=== PATIENT | male | born 2000 | race Two or more races ===

== ENCOUNTER 2025-01-20 09:23 | Outpatient (REF) | payer BC, SELFPAY ==
[2025-01-20 10:55] LABS: MANUAL DIFF FLAG NO
[2025-01-20 11:01] LABS: Hematocrit 43.3 % (42.0-52.0); Hemoglobin 15.4 g/dl (14.0-18.0); Imm Gran Abs Auto 0.06 X10*3/uL (0.00-0.03); Imm Gran Pct Auto 0.9 % (0.0-0.4); Lymphocytes Absolute Auto 2.5 X10*3/uL (1.2-4.9); Mean Corpuscular HGB Conc 35.6 g/dl (31.0-36.0); Mean Corpuscular Hemoglobin 30.0 pg (27.0-33.0); Mean Corpuscular Volume 84.2 fL (80.0-98.0); NRBC Abs Auto 0.000 X10*3/uL (0.0-0.012); NRBC Pct Auto 0.0 /100WBC (0.0-0.2); Platelet Count 202 X10*3/uL (160-400); Red Blood Count 5.14 X10*6/uL (4.60-5.80); White Blood Count 6.5 X10*3/uL (4.8-10.8)
[2025-01-20 11:35] LABS: Alanine Aminotransferase 28 U/L (0-40); Albumin Level 4.9 g/dL (3.5-5.0); Alkaline Phosphatase 70 U/L (39-117); Anion Gap 12 (12-20); Aspartate Amino Transferase 19 U/L (5-37); Blood Urea Nitrogen 17 mg/dL (9-16); Calcium 9.3 mg/dL (8.4-10.2); Carbon Dioxide 25 mmol/L (22-29); Chloride 105 mmol/L (96-108); Estimated Glomerular Filt Rate > 60; Potassium 3.8 mmol/L (3.3-5.1); Sodium 138 mmol/L (135-145); Total Protein 7.5 g/dL (6.5-8.0)
[2025-01-20 11:36] LABS: Alanine Aminotransferase 28 U/L (0-40); Albumin Level 4.8 g/dL (3.5-5.0); Alkaline Phosphatase 70 U/L (39-117); Anion Gap 12 (12-20); Aspartate Amino Transferase 31 U/L (5-37); Blood Urea Nitrogen 17 mg/dL (9-16); Calcium 9.3 mg/dL (8.4-10.2); Carbon Dioxide 24 mmol/L (22-29); Chloride 106 mmol/L (96-108); Cholesterol 189 mg/dL (<200); Estimated Glomerular Filt Rate > 60; HDL Cholesterol 58 mg/dL (>40); Iron 73 mcg/dL (45-160); Percent Iron Saturation 26 % (15-50); Potassium 3.8 mmol/L (3.3-5.1); Sodium 138 mmol/L (135-145); Total Iron Binding Capacity 283 mcg/dL (228-428); Total Protein 7.4 g/dL (6.5-8.0); Triglycerides 119 mg/dL (<150); Unsaturated Iron Binding 210 ug/dL
[2025-01-20 11:48] LABS: Appearance Urine Clear; Glucose Urine UA Negative (Negative); PH 6.5 (5.0-9.0); Specific Gravity - Urine <= 1.005 (1.005-1.025)
[2025-01-20 11:55] LABS: Ferritin 137 ng/mL (20-250); Thyroid Stimulating Hormone 1.48 uIU/mL (0.32-4.0)
[2025-01-27 00:24] LABS: Lactoferrin, Fecal, Quant. <6.25 mcg/mL (<7.25)
== END 2025-01-20 09:24 | disposition home or self-care (01) ==
LOC: HO.LAB 09:23
PROVIDERS: Absent Provider Hospitalist; PCP Hospitalist; Visit Provider Internal Medicine Gastroenterology
DX: Z00.00 Encounter for general adult medical examination without abnormal findings (principal); R10.9 Unspecified abdominal pain; R30.0 Dysuria; K51.50 Left sided colitis without complications; R63.4 Abnormal weight loss
CPT/HCPCS: 36415; 80053; 80061; 81003; 82728; 83013; 83540; 83631; 84443; 85025; 86140; 99211

== ENCOUNTER 2025-01-20 09:23 | Outpatient (AMB) | payer BC, SELFPAY ==
--- NOTE | 2025-01-20 09:33 | AM.OFFVISNUR ---
Intake Visit Reasons: H Pylori Nursing Note Patient presents for collection of H Pylori breath test. Patient has been fasting for 1 hour (nothing to eat, drink, no chewing gum or smoking) has not taken any antacid medication for at least 2 weeks and has no allergies to artificial sweeteners.?? Assessment & Plan Assessment & Plan (1) Abdominal pain: Code(s): R10.9 - Unspecified abdominal pain Category: Medical Plan Patient presents for collection of H Pylori breath test. Patient has been fasting for 1 hour (nothing to eat, drink, no chewing gum or smoking) has not taken any antacid medication for at least 2 weeks and has no allergies to artificial sweeteners.???This test checks for an overgrowth of bacteria in your stomach. We all have bacteria but some may have more than others. It is treatable. if the test comes back negative there is nothing else to do. If the test result is positive we will treat you with 2 antibiotics and a medication to decrease the acid in your stomach (PPI) for 2 weeks. Two weeks after you have completed the treatment we will retest you to make sure the overgrowth has resolved. Orders: Orders H Pylori Breath Test Today Patient Instructions: Process for specimen collection and reason for testing was explained to the patient. Specimen collection. Patient instructed to take a deep breath and then exhale into the blue bag, filling it up as much as possible. Patient instructed to drink a mixture of water and the artificial sweetener with a straw. A 15 minute wait period was observed. Patient instructed to take a deep breath and then exhale into the pink bag, filling it up as much as possible.?? Coding Level of Care Code Established Pt Est Pt Level 1 (68120) Patient Type Established Medical Decision Making Straight Forward Diagnoses Abdominal pain R10.9
--- OUTSIDE RECORDS SUMMARY | 2025-01-20 09:50 | XMS_ITS | Patient Health Record ---
Author Organization [facility] Address [address] [place] [address] Care Team Providers Care Radiation Oncology Manager Name Role Phone SIDRA REAL Primary Care Provider Claude Oreilly Unavailable [phone] Allergies No Known Allergies Reason For Referral Reason abdominal pain ple ase evaluate and treat Diagnosis 1 Abdominal pain (R10. 9) Referral Organization [facility] Referring Provider First Name Claude Referring Provider Last Name Denilson Referred Provider Specialty Gastroentero logy General Notes Referral was faxed t o [facility]. Please contact patient for scheduling., Lydia Cope 01/05/2025 04:55:41 PM > Referral Priority Routine Reason abdominal pain ple ase evaluate and treat Diagnosis 1 Abdominal pain (R10. 9) Referral Organization [facility] Referring Provider First Name SIDRA Referring Provider Last Name FARHAN Referring Provider Speciality Internal M edicine Referred Provider Specialty Gastroentero logy General Notes Referral was faxed t o [facility]. Please contact patient for scheduling, Lydia Cope 01/06/2025 04:52:22 PM > Referral Priority Routine Medications Medication SIG (Take, Route, Fr equency, Duration) Notes Start Date End Date Status Hydrocortisone 2.5 % 1 application Exter tk Twice a day; Duration: 21 days 06/22/2024 Active Problems Problem Type SNOMED Code ICD Code Onset Dates Problem Status W/U Status Risk Notes Problem Generalized anxiety disorder (90159590) Generalized anxiety disorder (F41.1) Active confirmed Problem Attention-defici t hyperactivity disorder, other type (F90.8) Active confirmed Problem Paresthesia (finding) (32370741) Paresthesia of skin (R20.2) Active confirmed Vital Signs Heart Rate 75 /min 11/25/2024 Temperature 97.2 degrees Fahrenheit 11/25/2024 Oximetry 98 % 11/25/2024 Blood pressure diastolic 74 mm Hg 11/25/2024 Height 5'7'' in 11/25/2024 Blood pressure systolic 110 mm Hg 11/25/2024 Weight 124.2 lbs 11/25/2024 BMI 19.45 kg/m2 11/25/2024 Encounters Encounter Location Date Provider Diagnosis [address] [place] [address] 05/21/2024 SIDRA REAL Annual physical exam Z00.00 ; Abnormal weight loss R63.4 ; Generalized anxiety disorder F41.1 and Unspecified abdominal pain R10.[address] [place] [address] 06/22/2024 VALENTE GUL Pain in right wrist M25.531 and Dermatitis, unspecified L30.[address] [place] [address] 08/06/2024 VALENTERASTA REAL Generalized anxiety disorder F41.1 and Paresthesia of skin R20.[address] [place] [address] 11/17/20[address] [place] [address] 11/25/2024 SIDRA REAL Attention-deficit hyperactivity disorder, other type F90.8 and Abdominal pain R10.[address] [place] [address] 06/28/[address] [place] [address] 07/12/[address] [place] [address] 11/25/[address] [place] [address] 12/13/2024 SIDRA REAL [facility] [address] [place] [address] 01/05/2025 Claude Oreilly [facility] [address] [place] [address] 01/06/2025 SIDRA REAL Assessments Encounter Date Diagnosis (ICD Code) Assessment Notes Treatment Notes Treatment Clinical Notes Section Notes 05/21/2024 Abnormal weight loss (ICD-10 - R63.4) Yousef age [age] years old gentleman with history of ADD is here to establish care. He complains of generalized anxiety disorder and abdominal pain/discomfort with no association with the food and unintentional weight loss. Plan is as follows Abdominal pain and weight loss. Differential diagnosis is gastritis, gallstones, generalized anxiety disorder. Dietary changes discussed and not interested in medications. We will do ultrasound of the abdomen to rule out gallstones. Meanwhile he should keep a diary of the triggers Generalized anxiety disorder. Lifestyle modification and given referral to Ms. Corona. He is not interested in pharmacotherapy. Screening blood work ordered. 05/21/2024 Annual physical exam (ICD-10 - Z00.00) Yousef age [age] years old gentleman with history of ADD is here to establish care. He complains of generalized anxiety disorder and abdominal pain/discomfort with no association with the food and unintentional weight loss. Plan is as follows Abdominal pain and weight loss. Differential diagnosis is gastritis, gallstones, generalized anxiety disorder. Dietary changes discussed and not interested in medications. We will do ultrasound of the abdomen to rule out gallstones. Meanwhile he should keep a diary of the triggers Generalized anxiety disorder. Lifestyle modification and given referral to Ms. Corona. He is not interested in pharmacotherapy. Screening blood work ordered. 06/22/2024 Dermatitis, unspecified (ICD-10 - L30.9) Yousef is a 24-year old gentleman with generalized anxiety disorder who is here today complaining of pain on his right wrist. Plan is as follows: Pain on right wrist. DDX tendinitis. He can use a hand brace and he can take Tylenol as needed. Ice the affected area. Ordered x-ray of the right wrist to rule out any fracture. Dermatitis. Start Hydrocortisone Cream BID General health concerns discussed with patient. Scribe services used to formulate this note under HIPAA compliance and under [place] law mandated for scribe services. Patient aware of service. Verbal consent and written consent taken from the patient. Patient understands and verbalizes understanding of the scribes services and all questions answered regarding scribes services. Patient agrees to use of scribes services. 06/22/2024 Pain in right wrist (ICD-10 - M25.531) Emelina is a 24-year old gentleman with generalized anxiety disorder who is here today complaining of pain on his right wrist. Plan is as follows: Pain on right wrist. DDX tendinitis. He can use a hand brace and he can take Tylenol as needed. Ice the affected area. Ordered x-ray of the right wrist to rule out any fracture. Dermatitis. Start Hydrocortisone Cream BID General health concerns discussed with patient. Scribe services used to formulate this note under HIPAA compliance and under [place] law mandated for scribe services. Patient aware of service. Verbal consent and written consent taken from the patient. Patient understands and verbalizes understanding of the scribes services and all questions answered regarding scribes services. Patient agrees to use of scribes services. 08/06/2024 Generalized anxiety disorder (ICD-10 - F41.1) Emelina is 24 years old with generalized anxiety disorder currently not on any medication is here for paresthesias of the right vazquez with no history of injury, trauma, unusual activity or strenuous activity. Plan is as follows Paresthesia right vazquez area. Exam is normal. He does not have any systemic or constitutional symptoms. At this point we will observe and if anything changes he will inform us. Screening blood work ordered 08/06/2024 Paresthesia of skin (ICD-10 - R20.2) Emelina is 24 years old with generalized anxiety disorder currently not on any medication is here for paresthesias of the right vazquez with no history of injury, trauma, unusual activity or strenuous activity. Plan is as follows Paresthesia right vazquez area. Exam is normal. He does not have any systemic or constitutional symptoms. At this point we will observe and if anything changes he will inform us. Screening blood work ordered 11/25/2024 Attention-deficit hyperactivity disorder, other type (ICD-10 - F90.8) Yousef is 24 years old gentleman with generalized anxiety disorder, ADHD in middle school and he was on Ritalin and Adderall is here today for follow-up. He also complained of intermittent abdominal pain and discomfort. Plan is as follows ADHD. We decided that we will try Strattera when he started going to school in February. Abdominal pain. It can be musculoskeletal, functional, IBS because of history of anxiety. We will do ultrasound for further evaluation. Advised to do screening blood work. 11/25/2024 Abdominal pain (ICD-10 - R10.9) Yousef is 24 years old gentleman with generalized anxiety disorder, ADHD in middle school and he was on Ritalin and Adderall is here today for follow-up. He also complained of intermittent abdominal pain and discomfort. Plan is as follows ADHD. We decided that we will try Strattera when he started going to school in February. Abdominal pain. It can be musculoskeletal, functional, IBS because of history of anxiety. We will do ultrasound for further evaluation. Advised to do screening blood work. 05/21/2024 Generalized anxiety disorder (ICD-10 - F41.1) Yousef age [age] years old gentleman with history of ADD is here to establish care. He complains of generalized anxiety disorder and abdominal pain/discomfort with no association with the food and unintentional weight loss. Plan is as follows Abdominal pain and weight loss. Differential diagnosis is gastritis, gallstones, generalized anxiety disorder. Dietary changes discussed and not interested in medications. We will do ultrasound of the abdomen to rule out gallstones. Meanwhile he should keep a diary of the triggers Generalized anxiety disorder. Lifestyle modification and given referral to Ms. Corona. He is not interested in pharmacotherapy. Screening blood work ordered. 05/21/2024 Unspecified abdominal pain (ICD-10 - R10.9) Yousef age [age] years old gentleman with history of ADD is here to establish care. He complains of generalized anxiety disorder and abdominal pain/discomfort with no association with the food and unintentional weight loss. Plan is as follows Abdominal pain and weight loss. Differential diagnosis is gastritis, gallstones, generalized anxiety disorder. Dietary changes discussed and not interested in medications. We will do ultrasound of the abdomen to rule out gallstones. Meanwhile he should keep a diary of the triggers Generalized anxiety disorder. Lifestyle modification and given referral to Ms. Corona. He is not interested in pharmacotherapy. Screening blood work ordered. Plan Of Treatment Pending Test Test Name Order Date Xray: Limited Wrist Right-2 Vws 06/22/20 Future Test Test Name Order Date US Abdomen 05/21/2024 Iron and [id number] 05/21/2024 TSH-[id number] 05/21/2024 Ferritin-[id number] 05/21/2024 CBC With Differential/Platelet-[id number] Lactose Tolerance Test-[id number] 05/21/2024 Chlamydia/GC Amplification-[id number] 2023 Lipid Panel-[id number] 05/21/2024 Comp. Metabolic Panel [id number] 2023 Next Appt Details Provider Name:SIDRA REAL , 02/24/2025 01:45:00 PM, [address] [place] [address], [phone], Provider Name:SIDRA REAL , 05/27/2025 03:00:00 PM, [address] [place] [address], [phone], Insurance Providers Payer Name Payer Address Payer Phone Subscriber Number Group Number Insured Name Patient Relationship to Insured Coverage Start Date Coverage End Date [facility] [address] [place] [address] [phone] [id number] DUSTIN, YOUSEF Self - patient is the insured
== END 2025-01-20 09:38 | disposition home or self-care (01) ==
LOC: HO.HGI 09:24
PROVIDERS: PCP Hospitalist; Visit Provider Internal Medicine Gastroenterology
DX: R10.9 Unspecified abdominal pain (principal)

== ENCOUNTER 2025-06-13 13:36 | Outpatient (AMB) | payer OTHER, SELFPAY ==
--- NOTE | 2025-06-13 13:51 | MHC.OFFVIS ---
Vital Signs 06/13/25 13:53 Height 5 ft 9.5 in Weight 130 lb 1.164 oz BMI 18.9 BP 120/61 Blood Pressure Location Lt brachial Position Sitting Pulse 73 Intake Visit Reasons: Abdominal pain - son of Dr. Hightower Intake Note: Yousef presents in the office as a new patient . off and on abdominal pains - can be with eating but it is also without. He notices more at home. On and off constipation and diarrhea but he states that it is less constipation. Electric Stop Installer Required: No Allergies No Known Allergies Allergy (Verified 06/13/25 13:53) HPI HPI Abdominal pain - son of Dr. Hightower: Details: HPI 25 yr old m here for assessment for abdominal pain He has left sided abdominal pain, for 1 yr crampy in nature sleep helps food can make it worse--can happen after 30 mins no n/v he has diarrhea every so often he thinks he is lactose intolerant no blood or melena in stools he does get cold sores occasional joint pains he gets pain in hands, worse in cold he felt better in [place] ROS: Constitutional : No Weight loss, No Fever, No Chills ENT/Mouth : No sore throat, No Rhinorrhea Eyes: No Swelling, No Redness Cardiovascular : No Chest Pain, No SOB, No Edema Respiratory : No Cough, No Sputum, No Wheezing Gastrointestinal : see HPI Genitourinary : NO Dysuria, No Urinary Frequency, No Hematuria, No Urgency Musculoskeletal : + joint pain, No Myalgias, No Joint Swelling Skin : No Skin Lesions, No rash Neuro : No Weakness, No Numbness, No Dizziness, No Headache Psych : + Anxiety/Panic, No Depression Heme/Lymph: No Bruising, No Lymphadenopathy Endocrine : No Polyuria, No Polydipsia All other systems reviewed and are negative. Medical History none Surgical History none Family History liver dz in grandfather Social History he denies smoking, THC, no alcohol EXAM: GENERAL: The patient is well developed and nontoxic. thin VITAL SIGNS:see workflow HEENT: Nonicteric sclerae, PERRLA, EOMI. Oropharynx clear. Moist mucous membranes. Conjunctivae appear well perfused. No thyroid mass. CHEST: Chest wall is nontender. HEART: Regular rate and rhythm without murmurs. LUNGS: Clear to auscultation bilaterally. ABDOMEN: Soft, positive bowel sounds, nontender, no organomegaly.no flank tenderness SKIN: No rash, no excessive bruising, petechiae, or purpura. NEUROLOGIC: Cranial nerves II-XII intact without motor/sensory deficit. Psych: normal affect labile joints, thin fingers, mobile joints A/P: 1/ LUQ pain, worse after eating -- ddx: PUD, MALS (may have EDS underlying, also describing raynauds)-- H pylori negative --does have anxiety may have functional component PLAN: /1 - trial of levsin 2/ US doppler and US abdomen, Physical Exam Vital Signs: Last Vital Signs Pulse 73 06/13/25 13:53 BP 120/61 06/13/25 13:53 BMI result Body Mass Index 18.9 Assessment & Plan Assessment & Plan (1) Abdominal pain: Code(s): R10.9 - Unspecified abdominal pain Category: Medical Plan: as above Orders: Orders US abdomen complete 06/13/25 R10.9 - Unspecified abdominal pain US SMA 06/13/25 R10.9 - Unspecified abdominal pain Medications: New hyoscyamine sulfate (Levsin/SL) 0.125 mg PO BID-QID PRN 14 tabs 0RF dyspepsia Discontinued sodium,potassium,mag sulfates 17.5-3.13-1.6 gram (Suprep Bowel Prep Kit) Discontinued Reason: Patient no longer taking DILUTE; drink 1/2 at 6-8 pm and half at 11 PM- 1AM 354 mL 0RF Coding Level of Care Code New Pt Level 4 (61397) Diagnoses Abdominal pain R10.9
[2025-06-13 13:53] VITALS: BP 120/61; PULSE 73; BMI 18.9
--- OUTSIDE RECORDS SUMMARY | 2025-06-13 17:11 | XMS_ITS | Clinical Summary ---
Author Organization [facility] Address [address] [place], [place] [id number] Phone Care Team Providers Care Regional Geodetic Advisor Name Role Phone Destinee Leigh MD Primary Care Provider Allergies No known active allergies Medications No known medications Social History Tobacco Use Types Packs/Day Years Used Date Smoking Tobacco: Never Assessed Education Answer Date Recorded Are you interested in more education? Not on sharri e 04/30/2024 Are you concerned about learning? Not on file 04/30/2024 No 04/30/2024 No 04/30/2024 Digital Access Answer Date Recorded No 04/30/2024 No 04/30/2024 Reliable internet access at home? Not on file 04/30/2024 Device with a working camera? Not on file Sex and Gender Information Value Date Recorded Sex Assigned at Not on file Legal Sex Male 8:46 PM EDT Gender Identity Not on file Sexual Orientation Not on file Last Filed Vital Signs Vital Sign Reading Time Taken Comments Blood Pressure 116/67 04/30/2024 4:54 PM EDT Pulse 61 04/30/2024 4:54 PM EDT Temperature 36.9 C (98.4 F) 04/30/2024 4:54 PM EDT Respiratory Rate 20 04/30/2024 4:54 PM EDT Oxygen Saturation 100% 04/30/2024 4:54 PM EDT Inhaled Oxygen Concentration - - Weight 59 kg (130 lb) 04/30/2024 4:54 PM EDT Height 175.3 cm (5' 9 ) 04/30/2024 4:54 PM EDT Body Mass Index 19.2 04/30/2024 4:54 PM EDT Plan of Treatment Health Maintenance Due Date Last Done Comments Adult Td,Tdap Booster 2001 DEPRESSION SCREENING 2013 SMOKING Hx and SMOKELESS TOB ACCO SCREENING 2014 HPV VACCINES (1 - Male 3-dos e series) 2016 HEPATITIS C SCREENING 2019 HIV ONE-TIME SCREENING (18-6 5 YEARS) 2019 INFLUENZA VACCINE (#1) 2025 COVID-19 VACCINE (2024-2 6 season) 2025 HEPATITIS A VACCINES Aged Out No long er eligible based on patient's age to complete this topic HIB VACCINES Aged Out No longer eligi ble based on patient's age to complete this topic MENINGOCOCCAL VACCINES (ACWY) Aged Out No longer eligible based on patient's age to complete this topic MENINGOCOCCAL VACCINES (B) Aged Out N o longer eligible based on patient's age to complete this topic PNEUMOCOCCAL VACCINES (0-49 years) Aged Out No longer eligible based on patient's age to complete this topic Medical Devices Not on file Insurance Care Teams Regional Geodetic Advisor Relationship Specialty Start Date End Date Destinee Leigh MD [address] [place], [place] [address] [address] PCP - General 05/21/24 Additional Source Comments The information contained in this document represents components of the legal health record. It is not the complete legal health record.[facility]
== END 2025-06-13 14:10 | disposition home or self-care (01) ==
PROVIDERS: PCP Hospitalist; Visit Provider Internal Medicine Gastroenterology
DX: R10.9 Unspecified abdominal pain (principal)
CPT/HCPCS: 99214

== ENCOUNTER → 2025-06-13 13:36 | Outpatient (BNVA) | payer BC, SELFPAY | PROVIDERS: PCP Hospitalist; Visit Provider Internal Medicine Gastroenterology | DX: R10.12 Left upper quadrant pain (principal) | CPT/HCPCS: 99212 ==